=== PATIENT | male | born 1975 | race Caucasian/White ===

== ENCOUNTER 2021-03-15 13:30 | Outpatient (RCR) | payer BC, SELFPAY ==
--- NOTE | 2021-02-10 08:50 | HP.PTEVAL_ITS ---
Patient's Visit Information JUAN PARSONS is a 45 year old M referred to Physical Therapy by SRUTHI BOCANEGRA with a diagnosis of Achilles Repair. Date of Evaluation: 02/09/21 Physical Therapist: Gina Vanegas DPT - Visit Plan Frequency: 3x /Week Duration: 4 Weeks Plan: Achilles Repair 10/04/20. Focus on LE and core strength/stabilization, gait mechanics and proprioception. Gentle Stretching - Subjective Had a RIGHT partial rupture in April then did PT- got better- August it completely ruptured. Had a repair by Dr. Bocanegra Oct [id number]. Went through a boot and has had it off for about a month-no lifts in his shoes. He had a great toe tendon transfer and has a lot of pain pushing off his toe- and has swelling around the ankle which does bother him sometimes. Wants to get back to walking normal. He has been cleared by the MD- was recommended no hills or jumping but can start jogging- first be able to walk a few miles prior to starting running. He wants him to get moving. He was pretty active prior to rupture- was running (trails and roads- up to 3-5x a week- between 4-10 miles) he also played basketball- would like to get back to doing those things. Has always worn [employer]- does not wear inserts or orthotics. Does have high arches so he goes through shoes pretty quickly. Worst: 3/10 Agg: awkward movements Best: 0/10 Eases: massage the heel- and the pain goes away. Describes the toe as a sharp pain and the ankle is more dull and achy. No radiating pain. If he is active he favors it so he does have soreness. Sleep: not disturbed. Work: [employer]- mostly sitting during the day-in dress shoes- but can get up and move around as needed. PMHx: none Meds: none - Objective Posture: FH, RS, can correct with verbal and tactile cues but does not maintain. Gait: decreased stance on the left LE with decreased heel/toe pattern. HR/TR: able with discomfort and weight shift to the right. SLS: 5 sec then LOB- severe pes cavus. Sensation: WNL to gross touch bilateral LE. ROM: Ankle DF: neutral, PF: 60 degrees, Inv: 30 degrees Ever: 30 degrees. Strength: core: fair, Hip: 4+/5 throughout, Knee: 5/5, Ankle: 4/5. Flex: HS: severe, Gastroc: severe Solues: moderate. Palpation: tender and crepitus along the right plantar fascia. Stairs: asc/desc 8 recip with 1 HR- poor control with descent. - Balance/Special Test Scores Lower Extremity Functional Score: 36 - Goals Goal 1:: Patient will be I with HEP and progression Goal Time Frame: 4-6 Weeks Goal 2:: Patient will ambulate >300 feet with a normalized gait pattern Goal Time Frame: 4-6 Weeks Goal 3:: Patient will asc/desc 8 recip with no HR with good control Goal Time Frame: 4-6 Weeks Goal 4:: Patient will SLS for 30 sec without LOB Goal Time Frame: 4-6 Weeks Goal 5:: Patient will report return to all normal ADL's without pain Goal Time Frame: 4-6 Weeks - Rehabilitation Potential Physical Therapy Diagnosis: Patient presents with hypomobility s/p Achilles Repair 10/04/20- he has decreased ROM, LE and core strength/stabilization, flexibility and muscular endurance leading to abnormal gait and decreased ability to perform normal ADL's. Rehabilitation Potential: Fair - Anticipated Interventions Patient/Client Instruction: Educate patient on: Benefits of Fitness Program Therapeutic Exercise to Include: Strength training, Endurance training, Balance training, Coordination, Agility training, Body mechanics, Postural training, Flexibilty training, Gait and locomotor training, Neuromotor development, Passive ROM, Active ROM, Dynamic Lumbar Stabilization, Scapular Strength/Stabi lization For the Purpose of:: To improve muscle performance and motor function Manual Therapy Techniques to Include: Passive ROM, Soft tissue mobilization TENS: Yes Cryotherapy (ice pack, ice massage): Yes Thermo therapy (hot pack): Yes Ultrasound (thermal/non thermal): Yes Thank you for the opportunity to evaluate your patient. For Medicare and Medicare HMO plans, please review the plan of care and approve it. It will need to be FAXED BACK to us at [phone] for Medicare purposes. For Medicare only, by signing this I certify the plan of care. Please let me know if there are questions or concerns regarding this plan of care. Physician Signature: Date:
--- NOTE | 2021-03-15 13:53 | HP.PTREVAL_ITS ---
SRUTHI MARINO, It has been my pleasure to treat JUAN PARSONS over the last 8 visits for Achilles Repair. Please see the progress note below for an update on the physical therapy plan of care! Subjective: Patient reports that he has no issues but still catches himself limping when ambulating. Played basketball this weekend (shooting around)- it was sore afterwards- he limped for a little bit- but the next day he was not limping The big toe is still a little limited. He feels that he is 80-90% back to normal. Does have access to a full gym at his house and plans to continue to play basketball. Objective/Function: Posture: good throughout. Gait: good no deviation noted HR/TR: able no weight shift. SLS: 30 seconds without LOB Sensation: WNL to gross touch bilateral LE. ROM: Ankle DF: 10 degrees, PF: 60 degrees, Inv: 30 degrees Ever: 30 degrees. Strength: core: fair plus, Hip: 5/5 throughout, Knee: 5/5, Ankle: 5/5. Flex: HS: mod, Gastroc: mod Solues: moderate. Stairs: asc/desc 8 recip with 1 HR-good control. Plan Plan: Hold 4-6 weeks- then follow up with updated HEP Balance/Gait/Functional tests - Balance/Special Test Scores Lower Extremity Functional Score: 67 Goals Goal 1:: Patient will be I with HEP and progression Goal Time Frame: 4-6 Weeks Goal Progress: Goal Met Goal 2:: Patient will ambulate >300 feet with a normalized gait pattern Goal Time Frame: 4-6 Weeks Goal Progress: Goal Met Goal 3:: Patient will asc/desc 8 recip with no HR with good control Goal Time Frame: 4-6 Weeks Goal Progress: Goal Met Goal 4:: Patient will SLS for 30 sec without LOB Goal Time Frame: 4-6 Weeks Goal Progress: Goal Met Goal 5:: Patient will report return to all normal ADL's without pain Goal Time Frame: 4-6 Weeks Goal Progress: Goal Met Anticipated Interventions Patient/Client Instruction: Educate patient on: Benefits of Fitness Program Therapeutic Exercise to Include: Strength training, Endurance training, Balance training, Coordination, Agility training, Body mechanics, Postural training, Flexibilty training, Gait and locomotor training, Neuromotor development, Passive ROM, Active ROM, Dynamic Lumbar Stabilization, Scapular Strength/ Stabilization For the Purpose of:: To improve muscle performance and motor function Manual Therapy Techniques to Include: Passive ROM, Soft tissue mobilization TENS: Yes Cryotherapy (ice pack, ice massage): Yes Thermo therapy (hot pack): Yes Ultrasound (thermal/non thermal): Yes Please do not hesitate to contact me at [phone] by phone or if you have questions or concerns regarding this new plan of care! Sincerely, JACK ResendizT
--- NOTE | 2021-08-11 14:13 | HP.PT.NRP ---
JUAN PARSONS was seen in my office for initial evaluation on 02/09/21. The following Plan of Care was established for this patient: Initial Frequency: 3x /Week Initial Duration: 4 Weeks Patient/Client Instruction: Educate patient on: Benefits of Fitness Program Therapeutic Exercise to Include: Strength training, Endurance training, Balance training, Coordination, Agility training, Body mechanics, Postural training, Flexibilty training, Gait and locomotor training, Neuromotor development, Passive ROM, Active ROM, Dynamic Lumbar Stabilization, Scapular Strength/Stabilization For the Purpose of:: To improve muscle performance and motor function Manual Therapy Techniques to Include: Passive ROM, Soft tissue mobilization TENS: Yes Cryotherapy (ice pack, ice massage): Yes Thermo therapy (hot pack): Yes Ultrasound (thermal/non thermal): Yes This patient was last seen in our office . Pertinent comments regarding their Physical therapy will appear below: Patient has not attended PT in over 30 days- appropriate to be d/c and return to MD for further evaluation as needed. At this point I will be discontinuing this patient from physical therapy. I would be happy to see this patient again in the future if found appropriate by the physician. Thank you! Gina Vanegas DPT Balance/Gait/Functional tests - Balance/Special Test Scores Lower Extremity Functional Score: 67
== END 2021-03-15 19:00 | disposition home or self-care (01) ==
LOC: PT 13:30
DX: S86.011D Strain of right Achilles tendon, subsequent encounter (principal); X58.XXXD Exposure to other specified factors, subsequent encounter
CPT/HCPCS: 97110; 97162; 97164